=== PATIENT | male | born 1970 | race Caucasian/White ===

== ENCOUNTER 2018-01-07 09:19 | Emergency (ER) | payer SELFPAY ==
[2018-01-07] MEDS ORDERED: Losartan 50 MG Tab PO ONE (10:08)
[2018-01-07] MEDS ORDERED: Hydrochlorothiazide 25 MG Tab PO ONE (10:08)
[2018-01-07] MEDS ORDERED: Carvedilol 12.5 MG Tab PO ONE (10:08)
--- NOTE | 2018-01-07 10:14 | EDM.PDOC ---
ED HPI GENERAL MEDICAL PROBLEM - General Chief Complaint: General Stated Complaint: BLOOD PRESSURE ISSUES, ABDOMINAL PAIN, TROUBLE URI Time Seen by Provider: 01/07/18 09:55 Source of Information: Reports: Patient History Limitations: Reports: No Limitations - History of Present Illness INITIAL COMMENTS - FREE TEXT/NARRATIVE: 47-year-old male sent in from [place] with persistent hypertension, generalized body aches and urinary urgency. Out in by police after being pulled over for DWI 3 nights ago. He said his medicine is "in his car", but a pharmacy check shows he has not filled any medications since late November. He is on 4 antihypertensives which he may have not had since late last month. Intermittent shortness of breath and chest pain, nausea, hurts all over and is asking for something for pain. Onset: Unknown/Unsure Severity: Moderate Associated Symptoms: Reports: Chest Pain, Malaise, Shortness of Breath, Weakness. Denies: Headaches, Nausea/Vomiting Generalized Pain Score (Numeric/FACES): 8 - Related Data Allergies Allergy/AdvReac Type Severity Reaction Status Date / Time No Known Allergies Allergy Verified 01/07/18 09:44 Home Meds: Home Meds Carvedilol [Coreg] 12.5 mg PO BID 01/07/18 [History] Citalopram [Citalopram HBr] 20 mg PO DAILY 01/07/18 [History] Hydrochlorothiazide 25 mg PO DAILY 01/07/18 [History] Losartan [Cozaar] 100 mg PO DAILY 01/07/18 [History] amLODIPine Besylate [Amlodipine Besylate] 10 mg PO DAILY 01/07/18 [History] traMADol [Ultram] 50 mg PO BID 01/07/18 [History] traZODone HCl [Trazodone HCl] 100 mg PO BID 01/07/18 [History] Past Medical History Cardiovascular History: Reports: Arrhythmia, Hypertension Respiratory History: Reports: Other (See Below) Other Respiratory History: lesions on lungs Gastrointestinal History: Reports: Chronic Diarrhea Genitourinary History: Reports: Other (See Below) Other Genitourinary History: Difficulty starting stream. Musculoskeletal History: Reports: Fracture Neurological History: Reports: Concussion Psychiatric History: Reports: Addiction, Anxiety, Panic Attack - Infectious Disease History Infectious Disease History: Reports: Mumps - Past Surgical History GI Surgical History: Reports: Cholecystectomy, EGD Social & Family History - Tobacco Use Smoking Status *Q: Never Smoker Second Hand Smoke Exposure: No - Caffeine Use Caffeine Use: Reports: Coffee, Soda - Alcohol Use Days Per Week of Alcohol Use: 7 Number of Drinks Per Day: 20 Total Drinks Per Week: 140 Date of Last Drink: 01/04/18 Time of Last Drink: 09:00 - Recreational Drug Use Recreational Drug Use: No ED ROS GENERAL - Review of Systems Review Of Systems: See Below Constitutional: Reports: Malaise, Weakness, Decreased Appetite HEENT: Reports: No Symptoms Respiratory: Reports: Shortness of Breath (Intermittent shortness of breath) Cardiovascular: Reports: Chest Pain GI/Abdominal: Reports: Abdominal Pain, Decreased Appetite, Nausea. Denies: Vomiting : Reports: Frequency, Urgency Skin: Reports: No Symptoms Neurological: Denies: Headache ED EXAM, GENERAL - Physical Exam Exam: See Below Exam Limited By: No Limitations General Appearance: Alert, No Apparent Distress, Anxious Eye Exam: Bilateral Eye: Normal Inspection Respiratory/Chest: No Respiratory Distress, Lungs Clear Cardiovascular: Regular Rate, Rhythm. No: Tachycardia GI/Abdominal: Soft, Tender (Reacts with tenderness to palpation over the entire abdomen, no bladder distention appreciated however the patient is obese) Extremities: Normal Inspection Neurological: Alert, Oriented Psychiatric: Depressed Mood, Flat Affect Skin Exam: Warm, Dry Course - Vital Signs Last Recorded V/S: Last Vital Signs Temp 97.7 F 01/07/18 09:55 Pulse 77 01/07/18 10:40 Resp 18 01/07/18 10:40 BP 148/92 H 01/07/18 10:42 Pulse Ox 94 L 01/07/18 10:40 - Orders/Labs/Meds Orders: Active Orders 24 hr Category Date Time Status UA W/MICROSCOPIC [URIN] Urgent Lab 01/07/18 10:06 Ordered Labs: Laboratory Tests 01/07/18 01/07/18 Range/Units 10:06 10:06 WBC 6.5 (4.5-11.0) K/uL RBC 4.03 L (4.30-5.90) M/uL Hgb 13.8 (12.0-15.0) g/dL Hct 40.5 (40.0-54.0) % MCV 101 H (80-98) fL MCH 34 H (27-31) pg MCHC 34 (32-36) % Plt Count 163 (150-400) K/uL Neut % (Auto) 70 H (36-66) % Lymph % (Auto) 12 L (24-44) % [place] % (Auto) 13 H (2-6) % Eos % (Auto) 5 H (2-4) % Baso % (Auto) 0 (0-1) % Sodium 137 L (140-148) mmol/L Potassium 3.6 (3.6-5.2) mmol/L Chloride 102 (100-108) mmol/L Carbon Dioxide 27 (21-32) mmol/L Anion Gap 11.6 (5.0-14.0) mmol/L BUN 8 (7-18) mg/dL Creatinine 0.8 (0.8-1.3) mg/dL Est Cr Clr Drug Dosing 125.29 mL/min Estimated GFR (MDRD) > 60 (>60) Glucose 106 (74-106) mg/dL Calcium 8.8 (8.5-10.1) mg/dL Total Bilirubin 0.5 (0.2-1.0) mg/dL AST 96 H (15-37) U/L ALT 158 H (12-78) U/L Alkaline Phosphatase 91 (46-116) U/L Total Protein 6.6 (6.4-8.2) g/dL Albumin 3.1 L (3.4-5.0) g/dL Globulin 3.5 (2.3-3.5) g/dL Albumin/Globulin Ratio 0.9 L (1.2-2.2) Lipase 65 L (73-393) U/L Meds: Medications Discontinued Medications Generic Name Dose Route Start Last Admin Trade Name Freq PRN Reason Stop Dose Admin Amlodipine Besylate 10 mg 01/07/18 10:45 01/07/18 10:42 Norvasc PO 01/07/18 10:46 10 mg BEDTIME ONE Administration Carvedilol 12.5 mg 01/07/18 10:08 01/07/18 10:36 Coreg PO 01/07/18 10:09 12.5 mg ONETIME ONE Administration Hydrochlorothiazide 25 mg 01/07/18 10:08 01/07/18 10:35 Hydrochlorothiazide PO 01/07/18 10:09 25 mg ONETIME ONE Administration Losartan Potassium 50 mg 01/07/18 10:08 01/07/18 10:42 Cozaar PO 01/07/18 10:09 50 mg ONETIME ONE Administration - Re-Assessments/Exams Free Text/Narrative Re-Assessment/Exam: 01/07/18 10:18 Bladder scan was obtained. CBC, CMP and UA were obtained. Patient was given his usual doses of carvedilol, amlodipine, hydrochlorothiazide and Lotensin. 01/07/18 10:43 CBC returned normal. Before the patient even got his medications his blood pressure normalized to 150/91. CMP also returned normal other than just mild elevation of liver enzymes. We will try to get 2 days worth of his antihypertensives so he can continue to take while in detox. Bladder scan showed only 55 mL of urine. Patient couldn't give us a UA. Departure - Departure Time of Disposition: 11:37 Disposition: DC/Tfer to Other 70 Condition: Good Clinical Impression: Alcohol abuse Hypertension Qualifiers: Hypertension type: essential hypertension Qualified Code(s): I10 - Essential ( primary) hypertension - Discharge Information Instructions: Hypertension Referrals: PCP,None [Primary Care Provider] - Forms: ED Department Discharge Care Plan Goals: Blood pressure medicines have been provided for 2 days, fill your prescriptions for an additional week and take as directed. Avoid alcohol intake and follow directions and advice given by the treatment center. - My Orders Last 24 Hours: My Active Orders 01/07/18 10:06 UA W/MICROSCOPIC [URIN] Urgent - Assessment/Plan Last 24 Hours: My Active Orders 01/07/18 10:06 UA W/MICROSCOPIC [URIN] Urgent
[2018-01-07] MEDS ORDERED: amLODIPine 10 MG Tab PO ONE (10:45)
== END 2018-01-07 11:30 | disposition other institution (70) ==
LOC: JP.ED 09:19
DX: F10.10 Alcohol abuse, uncomplicated (principal); I10 Essential (primary) hypertension
CPT/HCPCS: 36415; 51798; 80053; 83690; 85025; 99283; 99285; A9270